=== PATIENT | male | born 2000 | race Asian ===

== ENCOUNTER 2021-08-05 18:12 | Emergency (ER) | payer BC ==
[2021-08-05 19:24] VITALS: BP 118/77; PULSE 84; RESP 18; TEMP 98.5
--- NOTE | 2021-08-05 19:30 | ED ---
General Adult HPI - General Chief complaint: Upper Respiratory Infection Stated complaint: SOB,sore throat-wants covid screening Time Seen by Provider: 08/05/21 19:17 Source: patient Mode of arrival: ambulatory Limitations: no limitations - History of Present Illness Initial comments: Dictation was produced using [employer] dictation software. please excuse any grammatical, word or spelling errors. Chief Complaint: 21-year-old male presents emergency department for covered symptoms History of Present Illness: Patient 21-year-old male who presents to the emergency department: Symptoms for 2 days. He was recently traveling from [place]. States that he developed nasal congestion, sore throat and cough. Patient had a negative rapid at home test for COVID-19. He feels like his symptoms are classic and wants to have a PCR test just to be sure. he is vaccinated. The ROS documented in this emergency department record has been reviewed and confirmed by me. Those systems with pertinent positive or negative responses have been documented in the HPI. All other systems are other negative and/or noncontributory. PHYSICAL EXAM: General Impression: Alert and oriented x3, not in acute distress HEENT: Normocephalic atraumatic, extra-ocular movements intact, pupils equal and reactive to light bilaterally Chest: Able to complete full sentences, no retractions, no tachypnea Motor: no focal deficits noted Neurological: CN II-XII grossly intact, no focal motor or sensory deficits noted Skin: Intact with no visualized rashes Psych: Normal affect and mood ED course: 21 y -old well-appearing male presents emergency department for Covid testing. Vital signs upon arrival are within acceptable limits. Patient not showing any signs of distress. Patient rapid coronavirus test is positive. Patient reevaluated in waiting room and found to be in similar condition. Not hypoxic. not a candidate for monoclonal antibodies. Patient will be discharged. - Related Data Allergies Allergy/AdvReac Type Severity Reaction Status Date / Time No Known Allergies Allergy Verified 08/05/21 19:24 Review of Systems ROS Statement: Those systems with pertinent positive or pertinent negative responses have been documented in the HPI. ROS Other: All systems not noted in ROS Statement are negative. Past Medical History Past Medical History: No Reported History History of Any Multi-Drug Resistant Organisms: None Reported Past Surgical History: No Surgical Hx Reported Past Psychological History: No Psychological Hx Reported Smoking Status: Never smoker Past Alcohol Use History: Occasional Past Drug Use History: None Reported General Exam Limitations: no limitations Course Vital Signs 08/05/21 19:22 Temperature 98.5 F Pulse Rate 84 Respiratory 18 Rate Blood Pressure 118/77 O2 Sat by Pulse 99 Oximetry Medical Decision Making - Lab Data Lab Results 08/05/21 Range/Units 19:28 Coronavirus (PCR) Detected A (Not Detectd) Disposition Clinical Impression: Coronavirus infection Disposition: HOME SELF-CARE Condition: Fair Instructions (If sedation given, give patient instructions): Coronavirus Diseas e 2019 (COVID-19) Is patient prescribed a controlled substance at d/c from ED?: No Referrals: Nonstaff,Physician [Primary Care Provider] - 1-2 days
== END 2021-08-05 20:27 | disposition home or self-care (01) ==
LOC: EC 18:12
DX: U07.1 COVID-19 (principal)
CPT/HCPCS: 87635; 99283; U0003